=== PATIENT | male | born 1960 | race Caucasian/White ===

== ENCOUNTER → 2019-07-10 08:57 | Outpatient (CLI) | payer MEDICAID ==
[2014-07-10 12:36] VITALS: BMI 26.2
[~2019-07-10 08:57] MED LIST: CRESTOR20 MG PO; FLOMAX0.4 MG PO; HYDROCODONE-APA1 TAB PO; ZANTAC150 MG PO
== END | disposition home or self-care (01) ==
LOC: D.CT 08:57
PROVIDERS: ATTEND Family Medicine
DX: M79.604 Pain in right leg (principal)

== ENCOUNTER 2019-07-26 05:40 | Outpatient (CLI) | payer MEDICAID ==
[~2019-07-26] VITALS: Ht 172.7 cm; Wt 77.3 kg
--- NOTE | ~2019-07-26 | HEMODYNAMI ---
PATIENT:THI BETANCOURT MEDICAL RECORD: [id number] : 60 [id number] ADMISSION DATE: 07/26/19 Generatedon:07/26/20199:32 Patient name: THI BETANCOURT Patient #: [id number] SSN: DO B: 1960 Date of study: 07/26/2019 Page: Of Hemodynamic Procedure Report Patient Data Patient Demographics Procedure consent was obtained First Name: THI Gender: Male Last Name: SERAFIN : 1960 Middle Initial: LLOYD Age: 59 year(s) Patient #: [id number] Race: Unknown Additional ID: [id number] Contact details [address]: [address] [place] [address] rd State: [place] City: [place] Zip code: [address] Past Medical History Allergies Allergen Reaction Date Comments Reported Penicillins 07/26/2019 Admission Admission Data Admission Date: 07/26/2019 Admission Time: 5:40 Height (in.): 68 BSA: 1.91 (m2) Height (cm.): 172.72 BMI: 25.85 (kg/m2) Weight (lbs.): 170 Weight (kg.): 77.11 Procedure Procedure Types Cath Procedure Peripheral Cath Diagnostic Procedure Personal Driver Peripheral Procedures Abd/Extremity Extremities Bilat Lower Extremity Procedure Description Procedure Date Procedure Date: 07/26/2019 Procedure Start Time: 8:39 Procedure Staff Name Function Noah Earl MD Performing Physician Anabel Prieto RT Garage Door Opener Installer Mandie Whitfield RN Nurse Andrew Gastelum RT Scrub Procedure Data Cath Procedure Fluoroscopy Diagnostic fluoroscopy Total fluoroscopy Time: 4.3 time: 4.3 min min Diagnostic fluoroscopy Total fluoroscopy dose: 526 dose: 526 mGy mGy Contrast Material Contrast Material Type Amount (ml) Isovue 300 175 Entry Location Entry Primary Successful Side Size Upsize Upsize Entry Closure Succ essful Closure Location (Fr) 1 (Fr) 2 (Fr) Remarks Device Remarks Femoral Angio-VIP artery 6Fr Diagnostic catheters Device Type Used For End Catheter Placement Merit Impress KA 2 5Fr 40CM catheter ([id number]) Procedure Medications Medication Administration Route Dosage Heparin Flush Bag added to field 3 bags (1000units/500ml NS) Lidocaine 1% added to field 20 Benadryl I.V. 50 mg Versed I.V. 1 mg Fentanyl I.V. 50 mcg Versed I.V. 1 mg Fentanyl I.V. 50 mcg Heparin Bolus I.V. 5000 units Versed I.V. 1 mg Fentanyl I.V. 50 mcg Nitroglycerin IC/IA I.A. 300 mcg Fentanyl I.V. 50 mcg Versed I.V. 1 mg Hemodynamics Rest BSA: 1.91 (m2) O2 Consumption: Estimated: 239.22 (ml/min) O2 Consumption indexed : Estimated:125.25 (ml/min/m) Heart Rate: 90 (bpm) Snapshots Pre Cath Intra NCS Post Cath Vital Signs Time Heart Resp SPO2 etCO2 NIBP (mmHg) Rhythm Pain Sedation Rate (ipm) (%) (mmHg) Status Level (bpm) 8:31:40 87 7 100 35.3 167/94(138) NSR 0 (11) 10(A) , No pain 8:35:56 102 9 100 34.6 166/99(129) NSR 0 (11) 10(A) , No pain 8:40:08 107 11 100 31.6 163/102(137) NSR 0 (11) 10(A) , No pain 8:44:26 107 7 100 32.4 160/97(130) NSR 0 (11) 10(A) , No pain 8:48:42 99 10 100 30.1 162/96(127) NSR 0 (11) 10(A) , No pain 8:53:00 81 8 97 37.6 160/94(143) NSR 0 (11) 8(A) , No pain 8:57:20 82 12 98 29.3 170/84(136) NSR 0 (11) 8(A) , No pain 9:01:40 106 14 100 31.6 145/102(131) NSR 0 (11) 8(A) , No pain 9:06:39 86 9 100 36.8 Measuring NSR 0 (11) 8(A) , No pain 9:06:44 86 10 100 36.8 156/92(135) NSR 0 (11) 8(A) , No pain 9:11:03 96 13 98 38.3 148/83(112) NSR 0 (11) 8(A) , No pain 9:15:13 95 13 98 31.6 144/94(115) NSR 0 (11) 8(A) , No pain 9:19:27 92 13 96 34.6 135/82(108) NSR 0 (11) 8(A) , No pain 9:23:35 100 10 99 0.7 146/102(133) NSR 0 (11) 8(A) , No pain 9:27:51 70 11 98 0 125/85(104) NSR 0 (11) 8(A) , No pain 9:32:01 68 11 94 0 129/73(108) NSR 0 (11) 8(A) , No pain Medications Time Medication Route Dose Verified Delivered Reason Notes Effec tiveness by by 8:30:51 Heparin Flush added 3 Noah Zamora used for Bag to bags Rajat Earl MD procedure (1000units/500ml field FLOREZ NS) 8:31:03 Lidocaine 1% added 20ml Noah Zamora for local to vial Rajat Earl MD anesthetic field 8:31:20 Benadryl I.V. 50 mg Noah Lockwood Per Nahid Earl RN physician 8:46:26 Versed I.V. 1 mg Noah Lockwood for Nahid Earl RN sedation 8:46:40 Fentanyl I.V. 50 Noah Lockwood for mcg Nahid Earl RN sedation 8:51:53 Versed I.V. 1 mg Noah Lockwood for Nahid Earl RN sedation 8:52:01 Fentanyl I.V. 50 Noah Lockwood for mcg Nahid Earl RN sedation 9:01:38 Heparin Bolus I.V. 5000 Noah Lockwood Per units Nahid Earl RN physician 9:11:23 Versed I.V. 1 mg Noah Lockwood for Nahid Earl RN sedation 9:11:31 Fentanyl I.V. 50 Noah Lockwood for mcg Nahid Earl RN sedation 9:12:16 Nitroglycerin I.A. 300 Noah Zamora IC/IA mcg Rajat Earl MD MD 9:22:23 Fentanyl I.V. 50 [place] [facility] [place]id Earl RN sedation 9:22:37 Versed I.V. 1 mg Nahid Blood RN sedation Procedure Log Time Note 7:42:43 Patient Height : 68 inches 7:42:47 Patient Weight : 170 lbs 7:42:51 Use device set IR Diagnostic 8:13:47 Angiodynamics Omniflush 5Fr 65cm ([id number]) opened to sterile field. 8:13:49 DOC .035 wire (R78992) opened to sterile field. 8:13:49 Micropuncture VSI 4FR kit opened to sterile field. 8:13:50 GAMINO 260 wire (C96050) opened to sterile field. 8:13:51 TUBING Contrast Injection High Pressure (LPD065T) opened to sterile field. 8:13:52 SHEATH 5FR [place] (PDX963) opened to sterile field. 8:13:53 Tegaderm 4 x 4 (1626W) opened to sterile field. 8:13:54 Sterile Angiographic Pack opened to sterile field. 8:13:55 Bag Decanter (2002S) opened to sterile field. 8:13:55 ACIST Manifold (72038) opened to sterile field. 8:13:56 ACIST Hand Control (52377) opened to sterile field. 8:13:57 ACIST Syringe (69406) opened to sterile field. 8:14:04 Time tracking: Regular hours (M-F 7:00 - 5:00) 8:14:22 Plan of Care:Hemodynamics will remain stable., Cardiac rhythm will remain stable., Comfort level will be maintained., Respiratory function will remain adequate., Patient/ family verbilizes understanding of procedure., Procedure tolerated without complication., Recovers from procedure without complications.. 8:14:35 Patient received from Outpatients to IR Alert and oriented. Tansferred to table in Supine position. 8:14:50 Signed procedure consent form obtained from patient. 8:14:57 H&P Date Dictated: 07/26/2019 Within 30 days and on chart., H&P Addendum completed by physician on day of procedure. (MUST COMPLETE FOR ALL OUTPATIENTS). 8:14:59 Pre-procedure instructions explained to patient. 8:14:59 Pre-op teaching completed and patient verbalized understanding. 8:15:01 Family unavailable. 8:15:03 Patient NPO since Midnight. 8:15:14 Patient allergic to Penicillins 8:15:18 Is the patient allergic to Iodine/contrast media? No. 8:15:23 Is patient on blood thinner?Yes 8:15:27 ACC The patient was administered the following blood thiners within the last 24 hours: ACCAspirin 8:15:33 Patient diabetic? No. 8:15:41 8:15:42 ----Pre-sedation anethsthesia assessment.---- 8:15:51 Previous problem with sedation/anesthesia? No ? 8:15:54 Snore? Yes 8:15:57 Sleep apnea? No 8:15:59 Deviated septum? No 8:16:15 Opens mouth fully? Yes 8:16:20 Sticks out tongue? Yes 8:16:24 Airway obstruction? No ? 8:16:52 Dentures? No ? 8:16:54 8:17:16 Pre procedure: right dorsailis pedis pulse Doppler 8:17:21 Pre procedure: left dorsailis pedis pulse Doppler 8:17:25 Pre procedure: right posterior tibial pulse Doppler 8:17:31 Pre procedure: left posterior tibial pulse Doppler 8:17:43 Left groin area was prepped with chlora-prep and draped in sterile fashion 8:17:46 8:17:59 Fire Safety Assessment: A--An alcohol-based skin anteseptic being used preoperatively., C--Open oxygen or nitrous oxide is being used. 8:18:07 2) 60-89 Mildly reduced kidney function, and other findings (as for stage 1) point to kidney disease. 8:18:37 Maximum allowable contrast dose (3.7 X eGFR X 0.75)225 ml. 8:18:41 8:30:31 Vital chart was started 8:30:51 Heparin Flush Bag (1000units/500ml NS) 3 bags added to field was administered by Noah Earl MD; used for procedure; Verbal order read back and verified. 8:31:03 Lidocaine 1% 20ml vial added to field was administered by Noah Earl MD; for local anesthetic; Verbal order read back and verified. 8:31:20 Benadryl 50 mg I.V. was administered by Mandie Whitfield RN; Per physician; Verbal order read back and verified. 8:36:23 Baseline sample Acquired. 8:37:39 Baseline sample Acquired. 8:37:44 Baseline sample Acquired. 8:37:53 Baseline sample Acquired. 8:38:15 Physician arrived 8:38:16 --------ALL STOP TIME OUT------ 8:38:17 Final Timeout: patient, procedure, and site verified with staff and physician. All members of the team are in agreement. 8:39:01 Procedure started. 8:39:01 Full Disclosure recording started 8:39:40 Local anesthetic to right femoral artery with Lidocaine 1% by Noah Earl MD.INITIAL ACCESS ONLY 8:46:26 Versed 1 mg I.V. was administered by Mandie Whitfield RN; for sedation; Verbal order read back and verified. 8:46:40 Fentanyl 50 mcg I.V. was administered by Mandie Whitfield RN; for sedation; Verbal order read back and verified. 8:51:53 Versed 1 mg I.V. was administered by Mandie Whitfield RN; for sedation; Verbal order read back and verified. 8:52:01 Fentanyl 50 mcg I.V. was administered by Mandie Whitfield RN; for sedation; Verbal order read back and verified. 8:52:42 GLIDE WIRE ANGLE 180cm (CA9754) opened to sterile field. 8:52:43 GLIDE CATHETER 5FR ANGLED 65cm (CG507) opened to sterile field. 9:00:49 AMPLATZ Super Stiff 75cm wire ([id number]) opened to sterile field. 9:01:25 Cordis 6Fr BRITE TIP 11cm sheath opened to sterile field. 9:01:38 Heparin Bolus 5000 units I.V. was administered by Mandie Whitfield RN; Per physician; Verbal order read back and verified. 9:02:36 A Merit Impress KA 2 5Fr 40CM catheter ([id number]) was advanced over the wire and used for . 9:05:00 AMPLATZ Super stiff 180cm wire ([id number]) opened to sterile field. 9:05:08 Cordis 7Fr BRITE TIP 11cm sheath opened to sterile field. 9:11:23 Versed 1 mg I.V. was administered by Mandie Whitfield RN; for sedation; Verbal order read back and verified. 9:11:31 Fentanyl 50 mcg I.V. was administered by Mandie Whitfield RN; for sedation; Verbal order read back and verified. 9:12:16 Nitroglycerin IC/IA 300 mcg I.A. was administered by Noah Earl MD; ; Verbal order read back and verified. 9:14:10 INFLATOR BasixTOUCH (QY7423) opened to sterile field. 9:14:37 Place stent Inflation Number: 1 A Visipro 10 x 37 x 135 Stent ([id number]) was prepped and advanced across the Undefined1 . The stent was deployed at 0 KENA for 0:00 (min:sec) . 9:22:23 Fentanyl 50 mcg I.V. was administered by Mandie Whitfield RN; for sedation; Verbal order read back and verified. 9:22:37 Versed 1 mg I.V. was administered by Mandie Nahid RN; for sedation; Verbal order read back and verified. 9:24:32 ANGIOSEAL-VIP PLUS 6 FR opened to sterile field. 9:26:02 A sheath was inserted into the Femoral artery 9:26:02 Sheath removed intact; hemostasis achieved with Angio-VIP 6Fr to the Femoral artery. 9:26:05 Procedure ended.(Physican Out) 9:26:16 Fluoroscopy time 04.30 minutes. 9:26:20 Fluoroscopy dose: 526 mGy 9:26:20 Flurop Dose total: 526 9:26:50 Contrast amount:Isovue 300 175ml. 9:29:01 Procedure and supply charges have been captured, reviewed, submitted and are correct. 9:32:22 Report given to Outpatients. 9:32:46 Vital chart was stopped Intervention Summary Intervention Notes Time ActionType Lesion and Equipment Used Action# Pressure Duration Attributes 9:14:[address] stent Undefined1 Visipro 10 x 37 x 1 0 00:00 135 Stent ([id number]) Device Usage Item Name Manufacture Quantity Catalog Number Hospital Part Curr ent Minimal Lot# / Charge Number Stock Stock Serial# Code Angiodynamics Angiodynamics 1 [id number] 787223 078048 3880 98 5 Omniflush 5Fr 65cm ([id number]) DOC .035 wire [employer] 1 [id number] 318657 9036 76 5 (Y23532) Micropuncture VSI VSI VASCULAR 1 7266V 462684 4638 81 5 4FR kit SOLUTIONS GAMINO 260 wire [employer] 1 R94969 651194 33990 9994 45 5 [id number] ([id number]) TUBING Contrast [facility] 1 [id number] 848346 045608 4294 37 5 Injection High Pressure ([id number]) SHEATH 5FR Terumo 1 UFP473 924357 715684 4551 01 5 [place] (OHS423) Tegaderm 4 x 4 3M 1 1626W 811616 621357 5963 97 5 (1626W) Sterile Cardinal 1 [id number] 216165 6310 87 5 Angiographic Pack Health Bag Decanter Microtek 1 556822 09312 9845 09 5 () Medical Inc. ACIST Manifold Acist Medical 1 83896 108433 038293 4615 71 5 (73631) Systems Inc ACIST Hand Acist Medical 1 71931 218487 457527 4093 55 5 Control (98271) Systems Inc ACIST Syringe Acist Medical 1 55458 906686 009453 0667 24 20 (40526) Systems Inc GLIDE WIRE ANGLE Terumo 1 JA6632 552194 890838 3416 14 5 180cm (XJ4470) GLIDE CATHETER Terumo 1 CG507 419241 5125 14 5 5FR ANGLED 65cm (CG507) AMPLATZ Super [place] 1 [id number] 035364 542740 8462 40 5 Stiff 75cm wire Scientific ([id number]) Cordis 6Fr BRITE Cardinal 1 [id number] 869308 2389 35 5 TIP 11cm sheath Health Merit Impress KA [facility] 1 [id number] 283001 1094 89 5 2 5Fr 40CM catheter ([id number]) AMPLATZ Super [place] 1 [id number] 110096 795589 5626 69 5 stiff 180cm wire Scientific ([id number]) Cordis 7Fr BRITE Cardinal 1 107319H 056069 0779 76 5 TIP 11cm sheath Health INFLATOR [facility] 1 OQ7682 871043 695377 1813 37 5 BasixTOUCH (RU1056) Visipro 10 x 37 x Medtronic 1 [id number] 098217 59292 9999 95 5 [id number] 135 Stent ([id number]) ANGIOSEAL-VIP [facility] [place] 1 733441 425003 108470 8077 37 5 [id number] PLUS 6 FR Signature Audit [place] Stage Time Signature Unsigned Intra-Procedure 07/26/2019 Anabel Prieto 9:32:41 AM RT(R) [facility] [address] [place] [address]
[2019-07-26 06:12] LABS: EOSINOPHILS 1.5 % (0-7); HEMOGLOBIN 13.4 g/dL (13.5-17.5); IMMATURE GRANULOCYTES 0.2 % (0-5); LYMPHOCYTES 33.3 % (15-50); MCH 27.3 pg (26.0-34.0); MCHC 32.7 g/dL (31.0-37.0); MCV 83.5 fL (80.0-100.0); MEAN PLATELET VOLUME 9.2 fL (7.4-10.4); MONOCYTES 12.9 % (2-11); NEUTROPHILS 51.1 % (40-80); PLATELET COUNT 249 10x3/uL (130-400); RBC 4.91 10x6/uL (4.20-6.10); RDW 13.3 % (11.5-14.5); WBC 6.2 10x3/uL (4.8-10.8)
[2019-07-26] MEDS ORDERED: FLUTICASONE PRO16 GM NASAL (06:25)
[2019-07-26] MEDS ORDERED: LIPITOR20 MG PO (06:27)
[2019-07-26] MEDS ORDERED: NIZORAL 2 % SH120 ML TOPICAL (06:28)
[2019-07-26] MEDS ORDERED: DEXEDRINE10 MG PO (06:28)
[2019-07-26] MEDS ORDERED: CLARITIN 10 MG10 MG PO (06:28)
[2019-07-26 06:36] VITALS: BP 146/96; Ht 172.7 cm; Wt 77.3 kg
[2019-07-26 06:37] LABS: CALC OSMOLALITY 280 mosm/kg (275-300); CALCIUM 9.1 mg/dL (8.5-10.1); CARBON DIOXIDE 26.3 mmol/L (21.0-32.0); CHLORIDE - SERUM 106 mmol/L (98-107); GLUCOSE 131 mg/dL (74-106); POTASSIUM - SERUM 4.4 mmol/L (3.5-5.1); SODIUM 140 mmol/L (136-145); UREA NITROGEN 13 mg/dL (7-18); eGFR NON AFRICAN AMERICAN 81 mL/min (90-120)
[2019-07-26 07:09] LABS: APTT 30.8 SECONDS (22.8-39.4)
[2019-07-26 07:17] LABS: INR 0.91 (0.85-1.17); PROTIME 12.3 SECONDS (11.6-15.0)
--- NOTE | 2019-07-26 13:06 | NUR ---
1230-DISCHARGE CRITERIA MET. RIGHT GROIN WITHOUT HEMATOMA OR ANY BLEEDING TO GUAZE. ABLE TO PALPATE PEDAL PULSE. STRONG AND REGULAR. DENIES COMPLAINTS. REVIEWED DISCHARGE INSTRUCTIONS. VERBALIZED UNDERSTANDING.
--- NOTE | 2019-07-26 13:07 | NUR ---
1240-ESCORTED OUT VIA W/C WITH SPOUSE AWAITING TO DRIVE HOME
== END 2019-07-26 12:40 | disposition home or self-care (01) ==
LOC: D.SP 05:40 → D.RAD 08:00 → D.SP 08:00
PROVIDERS: ATTEND General Practice
DX: I70.201 Unspecified atherosclerosis of native arteries of extremities, right leg (principal); E78.5 Hyperlipidemia, unspecified; K21.9 Gastro-esophageal reflux disease without esophagitis; R73.03 Prediabetes; Z87.891 Personal history of nicotine dependence